=== PATIENT | male | born 1965 ===

== ENCOUNTER 2018-07-29 06:13 | Day surgery (SDC) | payer MEDICAID ==
[2018-07-29 07:17] VITALS: RESP 20; TEMP 97.1; O2SAT 98
[2018-07-29] MEDS ORDERED: Lactated Ringer's 1,000 ML IV ONE (09:30)
[2018-07-29] MEDS ORDERED: Midazolam 2 MG/2 ML VIAL ONE (09:35)
[2018-07-29] MEDS ORDERED: Propofol 10 mg/ml Inj (20 ML) ONE ×2 (09:35→09:40)
[2018-07-29 10:47] VITALS: BP 126/73; PULSE 76
== END 2018-07-29 11:29 | disposition home or self-care (01) ==
LOC: C.ENDO 06:13
PROVIDERS: ATTEND Internal Medicine Gastroenterology
DX: Z12.11 Encounter for screening for malignant neoplasm of colon (principal); K64.4 Residual hemorrhoidal skin tags
CPT/HCPCS: 45378; J2001; J2250; J2704; J7120